=== PATIENT | male | born 1935 | race Caucasian/White ===

== ENCOUNTER 2021-01-04 16:14 | Emergency (ER) | payer OTHER ==
[~2021-01-04] VITALS: Ht 177.8 cm; Wt 80.7 kg
[~2021-01-04 16:14] MED LIST: ASPIRIN EC81 M1 PO; B-121000 MCG PO; COQ-10100 MG PO; CRESTOR40 MG PO; FINASTERIDE5 MG PO; FISH OIL 1,001000 M1 PO; LISINOPRIL10 MG PO; VITAMIN D1000 UNI1 PO; ZETIA10 MG PO
[2021-01-04 17:34] VITALS: BP 175/82
== END 2021-01-04 17:35 | disposition home or self-care (01) ==
LOC: ER 16:14
DX: R33.9 Retention of urine, unspecified (principal); I25.10 Atherosclerotic heart disease of native coronary artery without angina pectoris; I10 Essential (primary) hypertension; Z79.82 Long term (current) use of aspirin; Z79.899 Other long term (current) drug therapy